=== PATIENT | male | born 1975 | race Caucasian/White ===

== ENCOUNTER → 2018-07-11 | Outpatient (CLI) | payer OTHER ==
[~2018-07-11] MED LIST: CEPH500 PO; CYCL10 PO; HYDACE5 PO; HYDCOR1TC TOP; HYDR1TAB94 PO; IBUP800; IBUP800 PO; METPRE4DP PO; NAPR550 PO; Norco 5-325 Ta1 EACH PO; OXYACE5T PO; RXNAPNA550 PO
[2018-07-13 16:08] LABS: HSV-2 IGG SUPPLEMENTAL TEST Positive (Negative)
== END | disposition home or self-care (01) ==
LOC: LAB SHORT 17:20 → LAB EV 17:20
PROVIDERS: General Practice
DX: L08.9 Local infection of the skin and subcutaneous tissue, unspecified (principal)
CPT/HCPCS: 86694; 86695; 86696

== ENCOUNTER 2021-06-11 18:07 | Emergency (ER) | payer OTHER ==
[~2021-06-11] VITALS: Ht 175.3 cm; Wt 83.9 kg
[2021-06-11] MEDS ORDERED: HYDR1TAB94 PO (21:52)
== END 2021-06-11 22:01 | disposition home or self-care (01) ==
LOC: ER 18:07
DX: S02.2XXA Fracture of nasal bones, initial encounter for closed fracture (principal); S01.511A Laceration without foreign body of lip, initial encounter; F17.290 Nicotine dependence, other tobacco product, uncomplicated; V29.9XXA Motorcycle rider (driver) (passenger) injured in unspecified traffic accident, initial encounter
CPT/HCPCS: 12011; 70160; 99284-25; A9270

== ENCOUNTER → 2022-09-12 | Outpatient (CLI) | payer OTHER ==
[2022-09-12 17:06] LABS: BASOPHILS ABSOLUTE AUTO 0.05 K/mm3 (0.00-0.23); BASOPHILS PERCENT AUTO 1 % (0-2); EOSINOPHILS ABSOLUTE AUTO 0.12 K/mm3 (0.00-0.68); EOSINOPHILS PERCENT AUTO 2 % (0-6); Hematocrit 47.9 % (37.0-53.0); Hemoglobin 16.8 g/dL (13.5-17.5); IMMATURE GRAN ABSOLUTE AUTO 0.01 K/mm3 (0.00-0.10); IMMATURE GRAN PERCENT AUTO 0 % (0-1); LYMPHOCYTES PERCENT AUTO 32 % (21-46); MONOCYTES ABSOLUTE AUTO 0.51 K/mm3 (0.16-1.47); MONOCYTES PERCENT AUTO 8 % (4-13); Mean Corpuscular HGB 31.6 pg (26.0-34.0); Mean Corpuscular HGB Conc 35.1 g/dL (31.5-36.5); Mean Corpuscular Volume 90 fL (80-100); NEUTROPHILS ABSOLUTE AUTO 3.69 K/mm3 (1.96-9.15); NEUTROPHILS PERCENT AUTO 57 % (41-73); Platelet Count 375 K/mm3 (150-400); RDW Coefficient Variation 12.5 % (11.7-14.2); RDW Standard Deviation 41.4 fL (35.1-46.3); Red Blood Cell Count 5.31 M/mm3 (4.30-5.90); White Blood Cell Count 6.48 K/mm3 (4.00-11.30)
[2022-09-12 17:16] LABS: Albumin, Blood 3.7 g/dL (3.4-5.0); Bilirubin, Total 1.1 mg/dL (0.1-1.0); Bun/Creatinine Ratio 16.8 (12.0-20.0); Calcium, Blood 9.6 mg/dL (8.5-10.1); Creatinine, Blood 1.19 mg/dL (0.60-1.20); Globulin, Blood 3.6 g/dL (2.2-4.0); Potassium, Blood 4.7 mmol/L (3.5-5.5); Total Protein, Blood 7.3 g/dL (6.4-8.2)
== END | disposition home or self-care (01) ==
LOC: LAB 16:59 → LAB SHORT 16:59
PROVIDERS: Physician Assistant
DX: I95.1 Orthostatic hypotension (principal)
CPT/HCPCS: 80053; 85025